=== PATIENT | female | born 1985 | race African-American/Black ===

== ENCOUNTER 2018-04-03 10:40 | Inpatient (IN) | payer OTHER ==
[2018-04-03] MEDS ORDERED: OXYTOCIN 30 UNITS in 0.9% NS 30 UNIT/500 ML INFUS.BAG IVPB ONE (11:35)
[2018-04-03 11:37] LABS: BASO % 0.7 % (0-2.0); EOS % 1.1 % (0-4.5); HEMATOCRIT 31.8 % (32.4-45.2); HEMOGLOBIN 10.6 GM/dL (10.7-15.3); LYMPH % 18.9 % (8-40); MCH 28.2 pg (25.7-33.7); MCHC 33.3 g/dl (32.0-36.0); MEAN CELL VOLUME 84.7 fl (80-96); MEAN PLT VOLUME 8.5 fl (7.5-11.1); MONO % 6.7 % (3.8-10.2); NEUT % 72.6 % (42.8-82.8); PLATELET COUNT 245 K/MM3 (134-434); RBC 3.76 M/mm3 (3.60-5.2); RDW 13.7 % (11.6-15.6); WHITE BLOOD COUNT 9.1 K/mm3 (4.0-10.0)
[2018-04-03] MEDS ORDERED: PROMETHAZINE HCL 25 MG/1 ML VIAL IVPUSH ONE (12:05)
[2018-04-03] MEDS ORDERED: TUBERCULIN PPD 5 TU/0.1ML SYRINGE (IN PATIENT USE ONLY) ID ONE (12:05)
[2018-04-03] MEDS ORDERED: BUTORPHANOL TARTRATE 1 MG/ML VIAL IVPB ONE (12:05)
[2018-04-03 12:11] LABS: ANION GAP 8 (8-16); BLOOD UREA NITROGEN 9 mg/dL (7-18); CALCIUM 8.4 mg/dL (8.5-10.1); CHLORIDE 107 mmol/L (98-107); CO2 24 mmol/L (21-32); CREATININE 0.5 mg/dL (0.55-1.02); GLUCOSE,RANDOM 92 mg/dL (74-106); POTASSIUM 4.2 mmol/L (3.5-5.1); SODIUM 139 mmol/L (136-145)
[2018-04-03] MEDS ORDERED: ELECTROLYTE-148 SOLN 1,000 ML IV SCH (12:15)
[2018-04-03] MEDS ORDERED: OXYTOCIN 30 UNITS in 0.9% NS 30 UNIT/500 ML INFUS.BAG IVPB SCH (12:15)
[2018-04-03 13:18] VITALS: BMI 29.5
[2018-04-03 13:36] LABS: INR 0.93 (0.82-1.09); PROTHROMBIN TIME (PATIENT) 10.5 SEC (9.7-13.0)
[2018-04-03 13:39] LABS: ACTIVATED PTT 25.6 SECONDS (25.2-36.5)
[2018-04-03] MEDS ORDERED: FENTANYL/BUPIVACAINE/NS/PF - PCEA - 50 ML DISP.SYRIN EP ONE (14:36)
[2018-04-03] MEDS ORDERED: BUPIVACAINE HCL/PF 0.25% (2.5MG/ML) 10 ML VIAL ONE (14:42)
[2018-04-03] MEDS ORDERED: PROMETHAZINE HCL 25 MG/1 ML VIAL ONE (15:07)
[2018-04-03] MEDS ORDERED: BUTORPHANOL TARTRATE 1 MG/ML VIAL ONE ×2 (15:07)
--- NOTE | 2018-04-03 18:02 | PN ---
Ante-Partal Exam - Subjective Subjective: Pt feeling pain with contractions, received stadol/phenergan. Now desires epidural. Vital Signs: Vital Signs Temperature 98.5 F 04/03/18 16:00 Pulse Rate 60 04/03/18 17:00 Respiratory Rate 20 04/03/18 17:00 Blood Pressure 112/71 04/03/18 17:00 O2 Sat by Pulse Oximetry (%) Bleeding: No Headache: No Visual changes: No Right upper quadrant pain: No Pain (scale 1-10): 7 - Contractions Contractions: Yes Regularity: Regular Intensity: Mod/Strong Monitor Mode: External - Exam during Labor Variability: Moderate Category: I Monitor Accelerations: Present Monitor Decelerations: None Exam: Vaginal Dilatation (cm): 4 Effacement (%): 70 Amniotic Membrane Status: Intact Presentation: Vertex Station: -2 - Assessment/Plan Assessment/Plan: continue active management/IOL for epidural then AROM
--- NOTE | 2018-04-03 18:07 | HP ---
Past Medical History - Primary Care Physician PCP:: Carmel Sales - Admission Chief Complaint: Here for induction of labor History of Present Illness: Late entry for 1315 32 y/o with SIUP at 39 weeks presents to L&D for elective IOL. Has h/o in 2016, no complications with this or with prior delivery. 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 No signs/sx of HSV outbreak, no medication at this time. Feels well overall, +FM, no VB/LOF. Occasional conractions. - Past Medical History Cardiovascular: No: CAD, HTN, [place] Gastrointestinal: No: Cancer, GERD, Irritable Bowel Disease ...: 2 ...Para: 1 ...Term: 1 ...: 0 ...Spon : 0 ...Induced : 0 ...Multiple Gestation: 0 ...LMP: 07/11/17 ... Weeks Gestation by Dates: 39.0 ...EDC by Dates: 04/10/08 Heme/Onc: No: Anemia, Bleeding Disorder Infectious Disease: Yes: Other (influenza at 37 weeks - treated). No: AIDS, HIV , STD's Psych: No: Anxiety, Bipolar, Depression Endocrine: No: Diabetes Mellitus, Hyperthyroidism, Hypothyroidism - Past Surgical History Past Surgical History: Yes: None Hx Myomectomy: No Hx Transabdominal Cerclage: No - Smoking History Smoking history: Never smoked Have you smoked in the past 12 months: No - Alcohol/Substance Use Hx Alcohol Use: No - Social History ADL: Independent History of Recent Travel: No Home Medications - Allergies Allergies/Adverse Reactions: Allergies Allergy/AdvReac Type Severity Reaction Status Date / Time Penicillins Allergy Severe Swelling Verified 04/03/18 11:21 - Home Medications Home Medications: Ambulatory Orders Vitamins (Sjr) - 1 tab PO DAILY 02/25/16 Review of Systems - Review of Systems Constitutional: reports: No Symptoms Eyes: reports: No Symptoms HENT: reports: No Symptoms Neck: reports: No Symptoms Cardiovascular: reports: No Symptoms Respiratory: reports: No Symptoms Gastrointestinal: reports: No Symptoms Genitourinary: reports: No Symptoms Breasts: reports: No Symptoms Reported Musculoskeletal: reports: No Symptoms Integumentary: reports: No Symptoms Neurological: reports: No Symptoms Endocrine: reports: No Symptoms Hematology/Lymphatic: reports: No Symptoms Psychiatric: reports: No Symptoms Physical Exam - Maternity Vital Signs: Vital Signs Temperature 98.5 F 04/03/18 16:00 Pulse Rate 60 04/03/18 17:00 Respiratory Rate 20 04/03/18 17:00 Blood Pressure 112/71 04/03/18 17:00 O2 Sat by Pulse Oximetry (%) Constitutional: Yes: Well Nourished, No Distress, Calm Eyes: Yes: Conjunctiva Clear, EOM Intact HENT: Yes: Atraumatic, Normocephalic Neck: Yes: WNL Cardiovascular: Yes: WNL Breast(s): Yes: WNL - Abdominal Exam/OB Fundal Height: 39 Number of Fetuses: Single Presentation: Vertex Contractions: Yes Regularity: Irregular Intensity: Mild Category: I Accelerations: Uniform Decelerations: None - Vaginal Exam/OB Vaginal Bleediing: No Dilatation (cm): 3 Effacement (%): 70 Amniotic Membrane Status: Intact Presentation: Vertex/Position Station: -2 - Physical Exam Psychiatric: Yes: Alert, Oriented - Labs Lab Results: CBC, BMP 04/03/18 11:30 04/03/18 11:30 Problem List - Problems (1) Term Code(s): Z34.80 - ENCOUNTER FOR SUPRVSN OF NORMAL , UNSP TRIMESTER Assessment/Plan 32 y/o with SIUP at 39 weeks, elective IOL AFVSS FHTS cat 1 IOL, pitocin started epidural prn GBS negative
[2018-04-03] MEDS ORDERED: ePHEDrine SULFATE 50 MG/1 ML AMPULE ONE (18:33)
[2018-04-03] MEDS ORDERED: NALOXONE HCL 0.4 MG/ML VIAL IVPUSH PRN (18:36)
[2018-04-03] MEDS ORDERED: FENTANYL/BUPIVACAINE/NS/PF - PCEA - 50 ML DISP.SYRIN EP SCH (18:45)
--- NOTE | 2018-04-03 19:17 | PN ---
Ante-Partal Exam - Subjective Vital Signs: Vital Signs Temperature 97.7 F 04/03/18 18:00 Pulse Rate 87 04/03/18 18:45 Respiratory Rate 20 04/03/18 18:45 Blood Pressure 106/69 04/03/18 18:45 O2 Sat by Pulse Oximetry (%) 97 04/03/18 18:45 Bleeding: No Headache: No Visual changes: No Right upper quadrant pain: No Pain (scale 1-10): 0 - Contractions Contractions: Yes Regularity: Regular Intensity: Strong - Exam during Labor Heart Rate: 120 Variability: Minimal Category: I Monitor Accelerations: Present Monitor Decelerations: None Exam: Vaginal Dilatation (cm): 5.5 Effacement (%): 70 Amniotic Membrane Status: Ruptured (arom for clear fluid at this exam) Amniotic Fluid: Clear Presentation: Vertex Station: -1 - Assessment/Plan Assessment/Plan: Pt here for elective IOL. s/p epidural continue pitocin s/p AROM Anticipate
[2018-04-03] MEDS ORDERED: OXYTOCIN 20 UNITS in 0.9% NS 20 UNIT/1,000 ML INFUS.BAG IV ONE (19:57)
[2018-04-03] MEDS ORDERED: BENZOCAINE 28 GM HEMORRHOIDAL OINTMENT TP PRN (21:47)
[2018-04-03] MEDS ORDERED: METHYLERGONOVINE MALEATE 0.2 MG/1 ML AMP IM PRN (21:47)
[2018-04-03] MEDS ORDERED: BISACODYL 10 MG SUPP.RECT RC PRN (21:47)
[2018-04-03] MEDS ORDERED: BENZOCAINE 20% 57 GM BOTTLE TP PRN (21:47)
[2018-04-03] MEDS ORDERED: WITCH HAZEL 50% (TUCKS) 40 PAD/JAR PAD TP PRN (21:47)
--- NOTE | 2018-04-03 21:47 | PN ---
Delivery - Delivery Vaginal Delivery: No Problems Episiotomy/Laceration: None EBL (cc): 250 Delivery, Single - Stages of Labor Date of Delivery: 04/03/18 Time of Delivery: 21:25 Date Placenta Delivered: 04/03/18 Time Placenta Delivered: 21:33 Placenta: Yes: Spontaneous - Condition of Remote Medical Coder/Press Catcher Present: No Gender: Male - 1 Minute Total Score: 8 5 Minutes Total Score: 9 - Feeding Plan Initial Plan: Elected not to breastfeed exclusively throughout hospitalization Remarks - Remarks Remarks: Uncomplicated of baby boy from direct OA position anterior shoulder (left) delivered along with remainder of cord clamped and cut Apgars 8/9 placenta delivered in tact with 3VC sponge count correct until delivery mom stable baby to well baby nursery
[2018-04-03] MEDS ORDERED: OXYTOCIN 20 UNITS in 0.9% NS 20 UNIT/1,000 ML INFUS.BAG IV SCH (22:00)
[2018-04-04] MEDS: IBUPROFEN 600 MG TABLET (FP) PO PRN ×3 (07:26→17:12)
[2018-04-04] MEDS: ACETAMINOPHEN 325 MG TABLET (FP) PO PRN ×3 (07:28→17:12)
[2018-04-04 08:16] LABS: BASO % 0.5 % (0-2.0); EOS % 0.4 % (0-4.5); HEMATOCRIT 30.9 % (32.4-45.2); HEMOGLOBIN 10.5 GM/dL (10.7-15.3); LYMPH % 14.2 % (8-40); MCH 28.4 pg (25.7-33.7); MCHC 33.9 g/dl (32.0-36.0); MEAN CELL VOLUME 83.8 fl (80-96); MEAN PLT VOLUME 8.5 fl (7.5-11.1); NEUT % 77.9 % (42.8-82.8); PLATELET COUNT 218 K/MM3 (134-434); RBC 3.69 M/mm3 (3.60-5.2); RDW 13.6 % (11.6-15.6); WHITE BLOOD COUNT 14.8 K/mm3 (4.0-10.0)
[2018-04-04] MEDS: PRENATAL VITAMINS W/ FOLIC ACID TABLET (FP) PO SCH (09:35)
[2018-04-04] MEDS ORDERED: DIPHTH,PERTUSS(ACELL),TET 0.5 ML DISP.SYRIN IM ONE (10:00)
[2018-04-04] MEDS ORDERED: SENNOSIDES/DOCUSATE COMBO (SENNA PLUS) TABLET (UD) PO PRN (22:00)
[2018-04-05 07:38] VITALS: BP 119/73; PULSE 73; TEMP 97.3
[2018-04-05] MEDS: PRENATAL VITAMINS W/ FOLIC ACID TABLET (FP) PO SCH (08:59)
[2018-04-05] MEDS: ACETAMINOPHEN 325 MG TABLET (FP) PO PRN (08:59)
[2018-04-05] MEDS: IBUPROFEN 600 MG TABLET (FP) PO PRN (09:00)
--- NOTE | 2018-04-05 09:18 | DS ---
Physical Exam-ORTHODONTIC ASSISTANT Vital Signs: Vital Signs Temperature 97.3 F L 04/05/18 07:37 Pulse Rate 73 04/05/18 07:37 Respiratory Rate 18 04/05/18 07:37 Blood Pressure 119/73 04/05/18 07:37 O2 Sat by Pulse Oximetry (%) 100 04/03/18 22:45 Constitutional: Yes: Well Nourished, No Distress, Calm Eyes: Yes: Other (left eye with some edema and tearing - no purulent discharge or watering) Respiratory: Yes: WNL Gastrointestinal: Yes: Normal Bowel Sounds, Soft. No: Tenderness Vaginal Exam: Yes: Bleeding ....Post : Yes: Uterus firm, Uterus non-tender, Slight lochia rubra Neurological: Yes: Alert, Oriented Psychiatric: Yes: Alert, Oriented Labs: CBC, BMP 04/04/18 07:40 04/03/18 11:30 Delivery - Delivery Vaginal Delivery: No Problems Type of Anesthesia: Epidural Episiotomy/Laceration: None EBL (cc): 250 Delivery, Single - Stages of Labor Date 1st Stage Initiatied: 04/03/18 Time 1st Stage Initiated: 17:50 Date 2nd Stage Initiated: 04/03/18 Time 2nd Stage Initiated: 21:10 Date of Delivery: 04/03/18 Time of Delivery: 21:25 Time Placenta Delivered: 21:33 Placenta: Yes: Spontaneous - Condition of Infant Senior Administrative Services Officer/Reliability Technician Present: No Gender: Male Weight: 7 lb 12 oz Position: OA Total Hours ROM (Hrs/Mins): [id number] - 1 Minute Total Score: 8 5 Minutes Total Score: 9 - [place] Feeding Plan Initial Plan: Elected not to breastfeed exclusively throughout hospitalization Discharge Summary Reason For Visit: INDUCTION OF LABOR Current Active Problems Term (Acute) Procedures: Principal: Normal Hospital Course: Pt admitted to [facility] for elective IOL on 04/03/18. Had uncomplicated of baby boy on that date. Pt did well post and was discharged home in stable condition on post day 2. Condition: Good - Instructions Diet, Activity, Other Instructions: Physical activity Resume your normal everyday activity as tolerated no heavy lifting or exercise until seen by your surgeon. You may walk unlimited ander of and climb stairs. You may resume driving the car when you feel safe and comfortable behind the wheel. No sexual activity as instructed. Diet There are no dietary restrictions. Eat healthy, high-fiber foods. Drink 6 to 8 glasses of liquid each day. This will assist in keeping your bowels are regular. Pain management You may take Tylenol or acetaminophen or Ibuprofen (for example, Motrin, Advil etc.) from my pain prescription medication is ordered should be taken as prescribed for moderate to severe pain. Call MD for any of the following: Severe pain not relieved by medication Fever of 101 or higher Excessive bleeding or drainage on dressing Inability to urinate Disposition: HOME - Home Medications Comprehensive Discharge Medication List: Ambulatory Orders Vitamins (Sjr) - 1 tab PO DAILY 02/25/16
--- NOTE | 2018-04-05 09:20 | PN ---
Post Progress Note - Subjective Subjective: Late entry for 04/04 at 7am. Pt doing well, pain controlled. Tolerating diet, ambulating, voiding, passing flatus. No complaints. Type of Delivery: Vital Signs: Vital Signs Temperature 97.3 F L 04/05/18 07:37 Pulse Rate 73 04/05/18 07:37 Respiratory Rate 18 04/05/18 07:37 Blood Pressure 119/73 04/05/18 07:37 O2 Sat by Pulse Oximetry (%) 100 04/03/18 22:45 Breast Exam: Yes: Soft Uterus: Yes: Fundus Firm Abdomen/GI: Yes: Abdomen soft, Tolerating PO Lochia: Yes: Rubra Lochia, amount: Moderate Extremities: Yes: Calves non-tender Perineum: Yes: Intact Activity: Ambulating - Labs Labs: CBC WBC 14.8 K/mm3 (4.0-10.0) H 04/04/18 07:40 RBC 3.69 M/mm3 (3.60-5.2) 04/04/18 07:40 Hgb 10.5 GM/dL (10.7-15.3) L 04/04/18 07:40 Hct 30.9 % (32.4-45.2) L 04/04/18 07:40 MCV 83.8 fl (80-96) 04/04/18 07:40 MCH 28.4 pg (25.7-33.7) 04/04/18 07:40 MCHC 33.9 g/dl (32.0-36.0) 04/04/18 07:40 RDW 13.6 % (11.6-15.6) 04/04/18 07:40 Plt Count 218 K/MM3 (134-434) 04/04/18 07:40 MPV 8.5 fl (7.5-11.1) 04/04/18 07:40 Absolute Neuts (auto) 11.6 # 04/04/18 07:40 Neutrophils % 77.9 % (42.8-82.8) 04/04/18 07:40 Lymphocytes % 14.2 % (8-40) D 04/04/18 07:40 Monocytes % 7.0 % (3.8-10.2) 04/04/18 07:40 Eosinophils % 0.4 % (0-4.5) 04/04/18 07:40 Basophils % 0.5 % (0-2.0) 04/04/18 07:40 Nucleated RBC % 0 % (0-0) 04/04/18 07:40 Problem List - Problems (1) Term Code(s): Z34.80 - ENCOUNTER FOR SUPRVSN OF NORMAL , UNSP TRIMESTER (2) Status post normal vaginal delivery Code(s): [id number] - Assessment/Plan 32 y/o PPD#1 s/p normal AFVSS Hgb 10.5 regular diet po pain meds ambulation routine care
== END 2018-04-05 11:40 | disposition home or self-care (01) | DRG 775 ==
LOC: JLDR 10:40 → J3W 23:30
PROVIDERS: ADMIT Obstetrics & Gynecology; ATTEND Obstetrics & Gynecology
PROC: 10E0XZZ Delivery of Products of Conception, External Approach (ICD-10-PCS; principal; 2018-04-03)
DX: O80 Encounter for full-term uncomplicated delivery (principal); Z3A.39 39 weeks gestation of pregnancy; Z37.0 Single live birth
CPT/HCPCS: 36415; 59409; 80048; 85025; 85610; 85730; 86593; 86850; 86900; 86901; 90715

== ENCOUNTER 2021-05-07 17:18 | Emergency (ER) | payer OTHER ==
[2021-05-07 17:33] VITALS: BP 112/79; PULSE 94; TEMP 98.1; BMI 24.2
== END 2021-05-07 18:46 | disposition home or self-care (01) ==
LOC: JERFT 17:18
DX: L03.115 Cellulitis of right lower limb (principal)
CPT/HCPCS: 99281-25